=== PATIENT | female | born 1975 | race Caucasian/White ===

== ENCOUNTER 2018-11-08 15:23 | Emergency (ER) | payer OTHER ==
[2018-11-08 15:55] VITALS: BMI 25.4
[2018-11-08] MEDS ORDERED: Sodium Chloride 0.9% 1,000 ML IV STA (16:20)
[2018-11-08] MEDS ORDERED: Atropine-Diphenoxylate 0.025-2.5 mg Tab PO STA (16:20)
--- NOTE | 2018-11-08 16:40 | ED PDOC ---
HPI:Nausea, Vomiting, Diarrhea Time Seen by Provider: 11/08/18 16:06 Chief Complaint (Nursing): Abdominal Pain Chief Complaint (Provider): Diarrhea History Per: Patient History/Exam Limitations: no limitations Onset/Duration Of Symptoms: Days (x2) Current Symptoms Are (Timing): Still Present Additional Complaint(s): Patient is a 43 y/o female with complaints of diarrhea for the past two days. Patient reports over ten episodes of watery, non-bloody diarrhea, crampy ab dominal pain, subjective fever, chills, and nausea. Patient claims her symptoms worsen when eating, as a result, patient complains of decreased PO intake. Of note, a week before symptoms started patient was in [place]. While there she exhibited none of these symptoms. Furthermore, patient's is in ED with the similar symptoms. Patient indicated she has been taking Pepto Bismol and Motrin with no relief. In addition, patient states she recently had some lemon water with bicarbonate to drink. Of note, patient states she was having stomach pain last week in her lower abdomen. At the time patient saw a [facility] who recommended an US. PCP: Dr. Henok Vargas Past Medical History Reviewed: Historical Data, Nursing Documentation, Vital Signs Vital Signs: Last Vital Signs Temp 99.2 F 11/08/18 15:53 Pulse 82 11/08/18 15:53 Resp 18 11/08/18 15:53 BP 119/77 11/08/18 15:53 Pulse Ox 100 11/08/18 15:53 Primary Care Provider: FAMILY PROVIDER,NO - Medical History PMH: No Chronic Diseases Denies: Colonic Polyps (HAD COLONOSCOPY 2009) Other PMH: breast cysts - Surgical History Surgical History: Denies: Endoscopy Other surgeries: breast augmentation and breast biopsy - Family History Family History: States: No Known Family Hx - Social History Current smoker - smoking cessation education provided: No Ex-Smoker (has not smoked in the last 12 months): No - Home Medications Home Medications: Ambulatory Orders Medication Instructions Recorded Atropine/Diphenoxylate [Lonox 2 tab PO Q6 PRN #30 tab 11/08/18 0.025 MG-2.5 MG] Ondansetron ODT [Zofran ODT] 1 odt PO Q6 PRN #20 odt 11/08/18 Saccharomyces Boulardi [Florastor] 500 mg PO BID #28 cap 11/08/18 - Allergies Allergies/Adverse Reactions: Allergies Allergy/AdvReac Type Severity Reaction Status Date / Time No Known Allergies Allergy Verified 11/08/18 15:58 Review of Systems ROS Statement: Except As Marked, All Systems Reviewed And Found Negative Constitutional: Positive for: Fever (subjective), Chills Gastrointestinal: Positive for: Nausea, Abdominal Pain (crampy), Diarrhea (watery, non-bloody) Physical Exam - Reviewed Nursing Documentation Reviewed: Yes Vital Signs Reviewed: Yes - Physical Exam Appears: Positive for: No Acute Distress Head Exam: Positive for: ATRAUMATIC, NORMAL INSPECTION, NORMOCEPHALIC Skin: Positive for: Warm, Dry ENT: Positive for: Normal ENT Inspection (tacky mucous membranes) Neck: Positive for: Painless ROM, Supple, Decreased ROM Cardiovascular/Chest: Positive for: Regular Rate, Rhythm. Negative for: Murmur Respiratory: Positive for: Normal Breath Sounds. Negative for: Respiratory Distress Gastrointestinal/Abdominal: Positive for: Normal Exam, Soft. Negative for: Tenderness, Mass, Distended, Guarding, Rebound Back: Positive for: Normal Inspection. Negative for: Decreased ROM Extremity: Positive for: Normal ROM. Negative for: Deformity Lymphatic: Negative for: Adenopathy Neurological/Psych: Positive for: Awake, Alert. Negative for: Motor/Sensory Deficits - Laboratory Results Result Diagrams: 11/08/18 16:36 11/08/18 16:36 - ECG O2 Sat by Pulse Oximetry: 100 (RA) Pulse Ox Interpretation: Normal Medical Decision Making Medical Decision Making: Time: 1636 Impression: Diarrhea DDx includes but not limited to gastroenteritis, infectious diarrhea, and colitis. Plan: CMP Lact Acid, Plasma Lipase Magnesium Phosphorus CBC Lomotil 2 tab PO IV Fluids Pepcid 20 mg IVP Zofran Inj 8 mg IV Stool Culture IV Insertion Labs c/w viral syndrome and mild hypokalemia. Potassium repletion initiated in ER No emergently significant abnormalities Stable for dc with followup. LEANN pt findings and plan of care. Scribe Attestation: Documented by Kelvin Lea, acting as a scribe Linda Trujillo MD. Provider Scribe Attestation: All medical record entries made by the Scribe were at my direction and personally dictated by me. I have reviewed the chart and agree that the record accurately reflects my personal performance of the history, physical exam, medical decision making, and the department course for this patient. I have also personally directed, reviewed, and agree with the discharge instructions and disposition. Disposition - Clinical Impression Clinical Impression: Gastroenteritis Counseled Patient/Family Regarding: Studies Performed, Diagnosis, Need For Followup, Rx Given - Disposition Referrals: Henok Vargas MD [Family Provider] - 11/09/18 ([facility]) Disposition: Routine/Home Disposition Time: 17:00 Condition: STABLE Prescriptions: Atropine/Diphenoxylate [Lonox 0.025 MG-2.5 MG] 2 tab PO Q6 PRN #30 tab PRN Reason: Diarrhea Ondansetron ODT [Zofran ODT] 1 odt PO Q6 PRN #20 odt PRN Reason: Nausea/Vomiting Saccharomyces Boulardi [Florastor] 500 mg PO BID #28 cap Instructions: Hypokalemia (DC), Gastroenteritis (ED) Forms: [facility] ED School/Work Excuse Print Language: PASHTO
[2018-11-08 16:47] LABS: BASO % 0.4 % (0.0-2.0); EOS # 0.3 K/uL (0.0-0.7); EOS % 10.6 % (0.0-4.0); HEMOGLOBIN 13.2 g/dL (12.0-16.0); LYMPH # 1.1 K/uL (1.0-4.3); LYMPH % 39.6 % (20.0-40.0); MEAN CELL VOLUME 92.4 fl (81.0-99.0); MEAN CORPUSCULAR HEMOGLOBIN 30.2 pg (27.0-31.0); MEAN CORPUSCULAR HGB CONC 32.7 g/dL (33.0-37.0); MONO # 0.5 K/uL (0.0-0.8); MONO % 16.7 % (0.0-10.0); NEUT # 0.9 K/uL (1.8-7.0); NEUT % 32.7 % (50.0-75.0); RBC 4.36 Mil/uL (3.80-5.20); RED CELL DISTRIBUTION WIDTH 13.2 % (11.5-14.5); WHITE BLOOD COUNT 2.9 K/uL (4.8-10.8)
[2018-11-08] MEDS ORDERED: Atropine-Diphenoxylate 0.025-2.5 mg Tab ONE (16:48)
[2018-11-08 16:58] LABS: ALB/GLOB RATIO 1.1 (1.0-2.1); ALBUMIN 4.2 g/dL (3.5-5.0); ALT/SGPT 25 U/L (9-52); AST/SGOT 26 U/L (14-36); BLOOD UREA NITROGEN 7 mg/dl (7-17); CALCIUM 8.6 mg/dL (8.4-10.2); GFR NON-AFRICAN AMERICAN > 60; LIPASE 141 U/L (23-300)
[2018-11-08] MEDS ORDERED: Potassium Chloride 20 mEq ER Tab PO STA (16:58)
[2018-11-08] MEDS ORDERED: Potassium Chloride 20 mEq ER Tab PO ONE (17:03)
[2018-11-08 18:04] VITALS: BP 122/78; PULSE 84; RESP 16; TEMP 98.7
[2018-11-09 16:11] VITALS: O2SAT 100
== END 2018-11-08 17:58 | disposition home or self-care (01) ==
LOC: H.ER 15:23
DX: K52.9 Noninfective gastroenteritis and colitis, unspecified (principal); E87.6 Hypokalemia
CPT/HCPCS: 80053; 81025; 83605; 83690; 83735; 84100; 85025; 87045; 96360; 99285; J7030